=== PATIENT | female | born 1970 | race Caucasian/White ===

== ENCOUNTER 2025-06-28 18:00 | Emergency (ER) | payer OTHER ==
[2025-06-28 19:59] LABS: #Basophils 0.05 10x3/uL (0.0-0.2); #Eosinophils 0.08 10x3/uL (0.0-0.5); #Monocytes 0.39 10x3/uL (0.0-1.1); #Neutrophils 3.00 10x3/uL (1.5-8.4); %Basophils 1.0 % (0.0-2.0); %Eosinophils 1.6 % (0.0-6.0); %Lymphocytes 30.4 % (18.0-47.0); %Monocytes 7.7 % (0.0-10.0); %Neutrophils 59.1 % (40.0-75.0); Hematocrit 33.5 % (34.9-44.5); Hemoglobin 11.3 g/dL (12.0-15.5); Mean Corpuscular Hemoglobin 30.5 pg (27.0-33.0); Mean Corpuscular Volume 90.5 fL (81.6-98.3); Platelet Count 193 10x3/uL (150-450); Red Blood Cell (RBC) Count 3.70 10x6/uL (3.90-5.03); White Blood Cell (WBC) Count 5.07 10x3/uL (3.5-10.5)
[2025-06-28 20:18] LABS: ALT (SGPT) 31 U/L (Less than 34); AST (SGOT) 55 U/L (11-34); Albumin 4.2 g/dL (3.1-4.5); Alkaline Phosphatase 64 U/L (40-110); Anion Gap 12 mmol/L (10-20); BUN (Urea Nitrogen) 18 mg/dL (9.8-20.1); Bilirubin, Total 0.3 mg/dL (0.3-1.2); Calc. Creatinine Clearance 0 mL/min (70-130); Calcium 8.6 mg/dL (7.8-10.44); Carbon Dioxide 21 mmol/L (22-29); Chloride 107 mmol/L (98-107); Globulin 2.4 g/dL (2.4-3.5); Glucose 87 mg/dL (70-105); Potassium 3.9 mmol/L (3.5-5.1); Sodium 136 mmol/L (136-145)
== END 2025-06-28 19:44 | disposition home or self-care (01) ==
LOC: CSHERS 18:00 → EEVIPCON 18:00 → CSHERS 19:44
DX: R51.9 Headache, unspecified (principal)
CPT/HCPCS: 70496; 70498; 80053; 85025